=== PATIENT | male | born 1995 | race American Indian/Alaskan Native ===

== ENCOUNTER → 2023-04-15 14:27 | Outpatient (CLI) | payer OTHER, SELFPAY ==
--- NOTE | 2023-04-15 14:31 | DI.RAD.S_ITS ---
PROCEDURE: XR SHOULDER RT MIN 2V INDICATIONS: right shoulder strain TECHNIQUE: 3 views of the shoulder were acquired. COMPARISON: None. FINDINGS: Bones: No fractures or dislocations. Normal glenohumeral alignment. Acromioclavicular and coracoclavicular intervals are maintained. No suspicious bony lesions. Visualized ribs appear intact. Soft tissues: No suspicious soft tissue calcifications. IMPRESSION: No acute bony abnormality. Dictated by: Nedra Trivedi M.D. on 04/15/2023 at 19:11 Approved by: Nedra Trivedi M.D. on 04/15/2023 at 19:12
== END ==
LOC: RAD 14:31
PROVIDERS: Referring Provider Nurse Practitioner Family; Visit Provider Nurse Practitioner Family
DX: S46.911A Strain of unspecified muscle, fascia and tendon at shoulder and upper arm level, right arm, initial encounter (principal); X58.XXXA Exposure to other specified factors, initial encounter
CPT/HCPCS: 73030